=== PATIENT | male | born 1965 | race African-American/Black ===

== ENCOUNTER → 2024-11-13 | Day surgery (SDC) | payer OTHER ==
[~2024-11-13] MED LIST: ACETAMINOPHEN 1000 MG/100 ML 100 ML IV ONE; ACETAMINOPHEN 1000 MG/100 ML IV PRN; ACETAMINOPHEN 650 MG SUPP PR PRN; ASPIRIN 325 MG TAB PO SCH; ASPIRIN EC81 MG PO; BACLOFEN10 MG PO; BENICAR20 MG PO; CELECOXIB 100 MG CAP PO SCH; DEXAMETHASONE SOD PHOS INJ 4 MG/ML SDV ONE; DIPHENHYDRAMINE HCL INJ 50 MG/ML VIAL IV PRN; DOCUSATE SODIUM 100 MG CAP PO PRN; FENTANYL CITRATE/PF 100MCG/2 ML INJ ONE; HYDROCODONE/APAP 5MG-325MG TAB PO PRN; HYDROCODONE/APAP 7.5MG-325MG 1 EA TAB ONE; LABETALOL HCL 20 ML ONE; LIDOCAINE HCL 2% LOCAL INJ 5 ML SDV VIAL INJ ONE; MIDAZOLAM HCL 2 MG/2 ML VIAL ONE; MULTI-VITAMIN1 EACH PO; ONDANSETRON HCL INJ 2MG/ML 2ML 2 MG/ML VIAL IV PRN; ONDANSETRON HCL INJ 2MG/ML 2ML 2 MG/ML VIAL ONE; PROPOFOL IV EMULSION 10 MG/ML 20 ML VIAL ONE; ROCURONIUM BROMIDE 1 ML IV ONE; ROPIVACAINE/EPI/CLONIDINE/KET 50 ML SYRINGE INJ ONE; SEVOFLURANE INHAL SOLN 250 ML PEN BTL ONE; SODIUM CHLORIDE 0.9% 1000ML 1,000 ML IV SCH; SUGAMMADEX SODIUM 200 MG/2 ML VIAL IV ONE; VITAMIN C1000 MG PO
[2024-11-13] MEDS: LACTATED RINGER'S 1,000 ML ONE (06:09)
[2024-11-13] MEDS: CEFAZOLIN SODIUM 0 GM ONE (06:10)
[2024-11-13] MEDS: CEFAZOLIN SODIUM 2 GM ONE (06:11)
[2024-11-13] MEDS: GABAPENTIN 300 MG CAP ONE (06:11)
[2024-11-13] MEDS: CELECOXIB 200 MG CAP ONE (06:11)
[2024-11-13] MEDS: DEXAMETHASONE SOD PHOS 10 MG/1 ML VIAL ONE (06:13)
[2024-11-13 09:23] VITALS: TEMP 97.6
[2024-11-13] MEDS: HYDROCODONE/APAP 7.5MG-325MG 1 EA TAB PO PRN (09:58)
[2024-11-13] MEDS: KETOROLAC TROMETHAMINE 30 MG/ML VIAL ONE (11:05)
[2024-11-13 11:30] VITALS: BP 120/94; PULSE 68; RESP 16; O2SAT 97
[2024-11-13] MEDS: HYDROCODONE/APAP 5MG-325MG TAB ONE (11:50)
== END | disposition home health service (06) ==
LOC: OR 05:39
PROVIDERS: ATTEND Specialist
DX: M17.11 Unilateral primary osteoarthritis, right knee (principal); G89.29 Other chronic pain; I10 Essential (primary) hypertension; Z79.82 Long term (current) use of aspirin; Z79.899 Other long term (current) drug therapy
CPT/HCPCS: 86850; 86870; 86880; 86900; 86905; 99001; C1713; C1776; J0690; J1100; J1885; J2003; J2250; J2405